=== PATIENT | male | born 1975 | race Caucasian/White ===

== ENCOUNTER 2018-11-27 10:13 | Emergency (ER) | payer BC, OTHER ==
[2018-11-27 10:35] VITALS: BP 130/73
[2018-11-27] MEDS ORDERED: Ipratropium 0.5MG/2.5ML NEB* 0.5 MG/2.5 ML NEB.SOLN INH ONE (11:01)
[2018-11-27] MEDS ORDERED: Albuterol 2.5 MG/3 ML NEB.SOL* (0.083%) INH ONE (11:01)
[2018-11-27] MEDS ORDERED: Albuterol HFA INHALER* 8 gm MDI INH ONE (11:45)
[2018-11-27] MEDS ORDERED: predniSONE TAB* 20 MG PO ONE (11:46)
--- NOTE | 2018-11-27 11:47 | UC ---
Respiratory Complaint HPI - HPI Summary HPI Summary: 43 yo male ill x 5 days with wheezing and productive cough no SOB febrile initially ex smoker some nasal congestion - History of Current Complaint Chief Complaint: UCRespiratory Stated Complaint: COUGH, CONGESTION, FEVER Time Seen by Provider: 11/27/18 10:51 Hx Obtained From: Patient Onset/Duration: Gradual Onset, Lasting Days Timing: Constant Severity Initially: Mild Severity Currently: Moderate Pain Intensity: 0 Pain Scale Used: 0-10 Numeric Character: Cough: Productive Aggravating Factors: Nothing Alleviating Factors: Nothing Associated Signs And Symptoms: Positive: Fever - first day or two, Chills - first day or two, Wheezing, URI, Nasal Congestion - Allergies/Home Medications Allergies/Adverse Reactions: Allergies Allergy/AdvReac Type Severity Reaction Status Date / Time Penicillins Allergy Unknown Verified 11/27/18 10:28 Reaction Details Home Medications: Home Medications Aspirin TAB* [Aspirin 325 MG TAB*] 325 mg PO DAILY 11/27/18 [History Confirmed 11/27/18] Atorvastatin* [Lipitor*] 20 mg PO DAILY 11/27/18 [History Confirmed 11/27/18] Niacin ER TAB* [Niaspan ER TAB*] 500 mg PO DAILY 11/27/18 [History Confirmed ] guaiFENesin ER TAB [Mucinex*] 600 mg PO BID PRN 11/27/18 [History Confirmed ] metFORMIN* [Glucophage 500 MG TAB *] 500 mg PO BID 11/27/18 [History Confirmed 11/27/18] PMH/Surg Hx/FS Hx/Imm Hx Previously Healthy: Yes Endocrine History: Diabetes Cardiovascular History: Hypertension Neurological History: CVA - Surgical History Surgical History: Yes Surgery Procedure, Year, and Place: fracture arm - Family History Known Family History: Positive: Hypertension - Social History Alcohol Use: None Substance Use Type: None Smoking Status (MU): Former Smoker When Did the Patient Quit Smoking/Using Tobacco: 2009 Review of Systems All Other Systems Reviewed And Are Negative: Yes Constitutional: Positive: Negative Skin: Positive: Negative Eyes: Positive: Negative ENT: Positive: Sinus Congestion Respiratory: Positive: Cough, Other - wheezing Cardiovascular: Positive: Negative Gastrointestinal: Positive: Negative Genitourinary: Positive: Negative Motor: Positive: Negative Neurovascular: Positive: Negative Musculoskeletal: Positive: Negative Neurological: Positive: Negative Psychological: Positive: Negative Physical Exam Triage Information Reviewed: Yes Appearance: Well-Appearing, No Pain Distress, Well-Nourished Vital Signs: Initial Vital Signs Temp 98.4 F 11/27/18 10:30 Pulse 90 11/27/18 10:30 Resp 16 11/27/18 10:30 BP 130/73 11/27/18 10:30 Pulse Ox 98 11/27/18 10:30 Vital Signs Reviewed: Yes Eyes: Positive: Conjunctiva Clear ENT: Positive: Pharynx normal, Nasal congestion. Negative: Nasal drainage, Trismus, Muffled voice, Hoarse voice Neck: Positive: Supple, Nontender, No Lymphadenopathy Respiratory: Positive: Chest non-tender, No respiratory distress, No accessory muscle use, Wheezing Cardiovascular: Positive: RRR, No Murmur Musculoskeletal: Positive: ROM Intact, No Edema Neurological: Positive: Alert Psychological Exam: Normal Skin Exam: Normal UC Diagnostic Evaluation - Laboratory O2 Sat by Pulse Oximetry: 98 - normal/not hypoxic - Radiology Radiology Interpretation Completed By: Radiologist Summary of Radiographic Findings: FINDINGS SUGGESTIVE OF COPD, NO EVIDENCE FOR ACUTE FINDIN Respiratory Course/Dx - Differential Dx/Diagnosis Provider Diagnosis: Bronchitis with bronchospasm Discharge - Sign-Out/Discharge Documenting (check all that apply): Patient Departure All imaging exams completed and their final reports reviewed: Yes - Discharge Plan Condition: Stable Disposition: HOME Prescriptions: DOXYcycline CAP(*) [DOXYcycline 100MG CAP(*)] 100 mg PO BID #14 cap predniSONE [Deltasone 20 MG TAB] 40 mg PO DAILY #8 tab Patient Education Materials: Acute Bronchitis (ED), How to Use a Metered-Dose Inhaler and a Spacer (ED) Referrals: Roly Morgan MD [Primary Care Provider] - 4 Days Additional Instructions: your CXR showed some changes that we see in patients with COPD you may need pulmonary function tests recheck for new or worsening symptoms I suggest follow up later this week for a reassessment of your symptoms - Billing Disposition and Condition Condition: STABLE Disposition: Home
== END 2018-11-27 12:16 | disposition home or self-care (01) ==
LOC: UCCORT 10:13
DX: J40 Bronchitis, not specified as acute or chronic (principal); J98.01 Acute bronchospasm; E11.9 Type 2 diabetes mellitus without complications; I10 Essential (primary) hypertension; Z79.82 Long term (current) use of aspirin; Z79.84 Long term (current) use of oral hypoglycemic drugs; Z86.73 Personal history of transient ischemic attack (TIA), and cerebral infarction without residual deficits; Z88.0 Allergy status to penicillin; Z87.891 Personal history of nicotine dependence
CPT/HCPCS: 71046; 99203; A9270-GY; G0463; J7512